=== PATIENT | female | born 1975 | race Caucasian/White ===

== ENCOUNTER 2018-05-29 22:49 | Emergency (ER) | payer SELFPAY ==
[~2018-05-29] VITALS: Ht 162.6 cm; Wt 77.1 kg
--- NOTE | 2018-05-30 00:51 | PHYS DOC ---
Past Medical History Past Medical History: No Pertinent History Past Surgical History: Smoking: Cigarettes Alcohol Use: None Drug Use: None Adult General Chief Complaint Chief Complaint: ABSCESS HPI HPI Patient is a 42 year old female who presents with an abscess to her right cheek. The patient states that it started approximately one year ago was a cut. She states that it is gradually increased in size but the past two months it has started becoming painful and has greatly increased in size. She denies fever , nausea or vomiting. She has not noticed any drainage from the wound. Review of Systems Review of Systems Constitutional: Denies fever or chills [] Eyes: Denies change in visual acuity, redness, or eye pain [] HENT: Denies nasal congestion or sore throat [] Respiratory: Denies cough or shortness of breath [] Cardiovascular: No additional information not addressed in HPI [] GI: Denies abdominal pain, nausea, vomiting, bloody stools or diarrhea [] : Denies dysuria or hematuria [] Musculoskeletal: Denies back pain or joint pain [] Integument: See history of present illness Neurologic: Denies headache, focal weakness or sensory changes [] Endocrine: Denies polyuria or polydipsia [] All other systems were reviewed and found to be within normal limits, except as documented in this note. Current Medications Current Medications Current Medications Medications (Trade) Dose Ordered Sig/Leydi Start Time Stop Time Status Last Admin Dose Admin Cephalexin HCl (Keflex) 500 mg 1X ONCE 05/30/18 02:45 05/30/18 02:46 DC Info (CONTRAST GIVEN -- Rx MONITORING) 1 each PRN DAILY PRN 05/30/18 02:00 06/01/18 01:59 Iohexol (Omnipaque 300 Mg/ml) 70 ml 1X ONCE 05/30/18 02:00 05/30/18 02:01 DC 05/30/18 01:54 70 ML Lidocaine/ Epinephrine (LIDOCAINE 2%-EPI 1:100,000 multi-dose) 20 ml 1X ONCE 05/30/18 02:45 05/30/18 02:46 DC 05/30/18 02:58 20 ML Neomycin/ Polymyxin/ Bacitracin (Triple Antibiotic Ointment) 1 pkt 1X ONCE 05/30/18 03:30 05/30/18 03:31 UNV Sodium Chloride 1,000 ml @ 1,000 mls/hr 1X ONCE 05/30/18 02:00 05/30/18 02:59 DC 05/30/18 01:00 1,000 MLS/HR Allergies Allergies Allergies Coded Allergies Type Severity Reaction Last Updated Verified No Known Drug Allergies 05/30/18 No Physical Exam Physical Exam Constitutional: Well developed, well nourished, no acute distress, non-toxic appearance. [] Cardiovascular:Heart rate regular rhythm, no murmur [] Lungs & Thorax: Bilateral breath sounds clear to auscultation [] Abdomen: Bowel sounds normal, soft, no tenderness, no masses, no pulsatile masses. [] Skin: There is a pumk-hoivol-lapde lesion to the patient's right upper cheek that is fluctuant, no erythema noted, tender to palpation Neurologic: Alert and oriented X 3, normal motor function, normal sensory function, no focal deficits noted. [] Psychologic: Affect normal, judgement normal, mood normal. [] Dr. Pradhan Physician exam Constitutional: Well developed, no acute distress, non-toxic appearance. [] Skin: Fluctuant lesion to right cheek which is tender to palpation, base appears indurated. no surrounding erythema noted Current Patient Data Vital Signs Vital Signs Date Time Temp Pulse Resp B/P (MAP) Pulse Ox O2 Delivery O2 Flow Rate FiO2 05/30/18 02:20 60 18 100/60 (73) Room Air 05/30/18 01:00 98.0 99 98.0 Lab Values Laboratory Tests Test 05/30/18 01:23 05/30/18 01:24 POC Hemoglobin 13.9 g/dL (12-15) POC Hematocrit 41 % (36-40) H POC Sodium 139 mmol/L (135-145) POC Potassium 5.1 mmol/L (3.5-5.0) H POC Chloride 103 mmol/L (98-110) POC Total CO2 29 mmol/L (23-32) Anion Gap 14 mmol/L (6-14) POC Blood Urea Nitrogen 18 mg/dL (8-26) POC Creatinine 0.8 mg/dL (0.5-1.4) Glucose Level 90 mg/dL (70-99) POC Ionized Calcium (Magno) 1.07 mmol/L (1.13-1.32) L Urine Test Negative (NEG) Laboratory Tests 9/23/18 01:23 EKG EKG [] Radiology/Procedures Radiology/Procedures PROCEDURE: CT MAXILLOFACIAL W/CONTRAST PQRS Compliance statement: One or more of the following individualized dose reduction techniques were utilized for this examination: 1. Automated exposure control. 2. Adjustment of the mA and/or kV according to patient size. 3. Use of iterative reconstruction technique. Indication:right cheek abscess; Omni 300, 70ml TECHNIQUE: CT of the maxillofacial bones with IV contrast multiplanar reformats. COMPARISON: None FINDINGS: The orbits and visualized sections through the brain are within normal limits. The nasopharynx and oropharynx are within normal limits. The submandibular glands, parotid glands are within normal limits. No enlarged deep cervical adenopathy. There is a 1.8 x 1.8 x 2.0 cm partially scribed attenuating lesion in the superficial soft tissue of the right face overlying the zygomatic arch. Mild surrounding inflammatory changes are seen. The visualized paranasal sinuses are clear. Mandible and temporomandibular joints are within normal limits. Visualized superior cervical spine within normal limits. IMPRESSION: 1. Superficial right facial soft tissue lesion most likely an infected sebaceous cyst. Electronically signed by: Jose De Jesus Hammer DO (05/30/2018 2:26 AM) [facility] Course & Med Decision Making Course & Med Decision Making Pertinent Labs and Imaging studies reviewed. (See chart for details) []0108: Care was transitioned to Dr. Pradhan to await the CT scan results. Sign out received from Michael for patient with fluctuant indurated lesion to right cheek. History of prior injury/laceration. Patient seen and evaluated by myself. No surrounding erythema. Labs reviewed. CT imaging obtained with findings consistent for infected sebaceous cyst. I&D performed with attempt at removal of intact cyst. Cyst did rupture and contents expelled. Copious irrigation utilized. Empiric antibiotics given. Given location of cyst to face , suture repair performed. Patient aware cyst may reform and she may need to follow with general surgery for full excision. Gen. surgery referral provided. Patient stable for discharge with outpatient follow-up with PCP. Discussed findings and plan with patient, who acknowledges understanding and agreement. Dragon Disclaimer Dragon Disclaimer This electronic medical record was generated, in whole or in part, using a voice recognition dictation system. Departure Departure Impression: Primary Impression: Infected sebaceous cyst Disposition: HOME, SELF-CARE Condition: STABLE Referrals: NO PCP (PCP) JOCELYN THOMPSON MD Patient Instructions: Cyst Removal Additional Instructions: Do not soak your wound. You may shower. Clean wound daily with soap and water. Change dressing 2 times daily. Use over the counter antibiotic ointment with each dressing change. Sutures need to be removed in 5 days. Present to your family doctor or local urgent care for removal. You may also present to the ED but it will be an additional visit/charge. After suture removal you may use Vitamin E ointment to soften the wound and prevent scarring. Scripts Hydrocodone/Apap 5-325 (NORCO 5-325 TABLET) 1 Each Tablet 1 TAB PO PRN Q6HRS PRN for PAIN, #6 TAB 0 Refills Prov: JASON PRADHAN DO 05/30/18 Cephalexin (KEFLEX) 500 Mg Capsule 500 MG PO QID for 7 Days, #28 CAP Prov: JASON PRADHAN DO 05/30/18 Incision and Drainage Incision and Drainage : Site: Right cheek Blade Size: 15 I & D Procedure: sterile drapes applied, sterile dressing applied Progress Verbal consent obtained. Time out performed. ChloraPrep utilized. Sterile glove donned. Sterile drapes applied. Anesthesia obtained with infiltration of 3mls of 2% lidocaine with epi with adequate anesthesia. 15 blade scalpel utilized to follow patient's lines to minimize scarring. Dissection performed with a temperature remove sac of sebaceous cyst intact. Cyst did rupture with malodorous thick yellow contents expelled. Contents fully expelled. Wound explored and any loculations broken down with curved Sheree clamp. Copious irrigation utilized. (500mls of NS). Laceration subsequently repaired with 6-0 nylon x 5 sutures. Topical antibiotic ointment applied with sterile dressing. Patient tolerated procedure well and without complication. Attending Signature Attending Signature I have personally interviewed and examined the patient. All charts, labs, and imaging studies were reviewed. I agree with the PA/BOX CHIPPER's findings, exam, and plan. MICHAEL QUEZADA APRN May 30, 2018 00:51 JASON PRADHAN DO May 30, 2018 03:26
[2018-05-30 01:27] LABS: CREATININE ISTAT 0.8 mg/dL (0.5-1.4); HEMOGLOBIN ISTAT 13.9 g/dL (12-15); ION CA ISTAT 1.07 mmol/L (1.13-1.32); POTASSIUM ISTAT 5.1 mmol/L (3.5-5.0)
[2018-05-30 01:42] LABS: U PREG PATIENT NEGATIVE (NEG)
[2018-05-30] MEDS ORDERED: IOHEXOL 300 MG/ML 100ML VIAL. IV ONE (02:00)
[2018-05-30] MEDS ORDERED: IV NORMAL SALINE 1000ML BAG 1,000 ML IV ONE (02:00)
[2018-05-30] MEDS ORDERED: CONTRAST GIVEN. MC PRN (02:00)
[2018-05-30 02:20] VITALS: BP 100/60
--- NOTE | 2018-05-30 02:29 | RAD ---
PQRS Compliance statement: One or more of the following individualized dose reduction techniques were utilized for this examination: 1. Automated exposure control. 2. Adjustment of the mA and/or kV according to patient size. 3. Use of iterative reconstruction technique. Indication:right cheek abscess; Omni 300, 70ml TECHNIQUE: CT of the maxillofacial bones with IV contrast multiplanar reformats. COMPARISON: None FINDINGS: The orbits and visualized sections through the brain are within normal limits. The nasopharynx and oropharynx are within normal limits. The submandibular glands, parotid glands are within normal limits. No enlarged deep cervical adenopathy. There is a 1.8 x 1.8 x 2.0 cm partially scribed attenuating lesion in the superficial soft tissue of the right face overlying the zygomatic arch. Mild surrounding inflammatory changes are seen. The visualized paranasal sinuses are clear. Mandible and temporomandibular joints are within normal limits. Visualized superior cervical spine within normal limits. IMPRESSION: 1. Superficial right facial soft tissue lesion most likely an infected sebaceous cyst. Electronically signed by: Jose De Jesus Hammer DO (05/30/2018 2:26 AM) [facility]
[2018-05-30] MEDS ORDERED: CEPHALEXIN 250 MG CAPSULE. PO ONE (02:45)
[2018-05-30] MEDS ORDERED: LIDOCAINE 2%/EPI 1:100,000 20 ML VIAL. IJ ONE (02:45)
[2018-05-30] MEDS ORDERED: CEPH-264 PO (03:16)
[2018-05-30] MEDS ORDERED: HYDR-971 PO (03:16)
[2018-05-30] MEDS ORDERED: NEOMY/BACITR/POLYMYXIN OINT PACKET. TP ONE (03:45)
== END 2018-05-30 03:30 | disposition home or self-care (01) ==
LOC: ER 22:49
DX: L72.3 Sebaceous cyst (principal); F17.210 Nicotine dependence, cigarettes, uncomplicated; Z98.890 Other specified postprocedural states
CPT/HCPCS: 10060; 70487; 80047; 81025; 99285; J3490; J7030; Q9967

== ENCOUNTER 2018-06-10 14:51 | Emergency (ER) | payer SELFPAY ==
[~2018-06-10] VITALS: Ht 162.6 cm; Wt 77.1 kg
[~2018-06-10 14:51] MED LIST: CEPH-264 PO; HYDR-971 PO
[2018-06-10] MEDS ORDERED: NEOMY/BACITR/POLYMYXIN OINT PACKET. TP ONE (14:55)
[2018-06-10 15:21] VITALS: BP 122/58
--- NOTE | 2018-06-10 15:32 | PHYS DOC ---
Past Medical History Past Medical History: No Pertinent History Past Surgical History: Alcohol Use: None Drug Use: None Adult General Chief Complaint Chief Complaint: SUTURE/STAPLE REMOVAL HPI HPI Patient is a 42 year old female who presents for suture removal from the right cheek after drainage of a sebaceous cyst in the ED on 05/30/2018. Patient states the cyst reformed. Review of Systems Review of Systems Constitutional: Denies fever or chills [] Musculoskeletal: Denies back pain or joint pain [] Integument: Suture removal from the right cheek Neurologic: Denies headache, focal weakness or sensory changes [] All other systems were reviewed and found to be within normal limits, except as documented in this note. Current Medications Current Medications Current Medications Medications (Trade) Dose Ordered Sig/Leydi Start Time Stop Time Status Last Admin Dose Admin Neomycin/ Polymyxin/ Bacitracin (Triple Antibiotic Ointment) 1 pkt STK-MED ONCE 06/10/18 14:55 06/10/18 14:57 DC Allergies Allergies Allergies Coded Allergies Type Severity Reaction Last Updated Verified No Known Drug Allergies 05/30/18 No Physical Exam Physical Exam Constitutional: Well developed, well nourished, no acute distress, non-toxic appearance. [] Skin: Warm, dry, no erythema, right cheek with an indurated area approximately 3X3cm, the area has no erythema, there is fluctuance to the area, no warmth. There is a well approximated laceration site on the lateral aspect of the lesion. Laceration site has sutures. Back: No tenderness, no CVA tenderness. [] Extremities: No tenderness, no cyanosis, no clubbing, ROM intact, no edema. [] Neurologic: Alert and oriented X 3, normal motor function, normal sensory function, no focal deficits noted. [] Psychologic: Affect normal, judgement normal, mood normal. [] Current Patient Data Vital Signs Vital Signs Date Time Temp Pulse Resp B/P (MAP) Pulse Ox O2 Delivery O2 Flow Rate FiO2 06/10/18 15:21 97.5 66 18 122/58 (79) 99 Room Air 97.5 EKG EKG [] Radiology/Procedures Radiology/Procedures [] Course & Med Decision Making Course & Med Decision Making Pertinent Labs and Imaging studies reviewed. (See chart for details) Patient has sebaceous cyst on her right cheek that was drained on 05/30/2018 and refilled back. She is here for suture removal. Sutures were removed by RN. The laceration site is well approximated. Patient was instructed to follow-up with Gen. surgery, plastic surgeon or metal reed tuner to have this cyst completely excised. Her tetanus is up-to-date. Staff Physician Addendum: I was working in the ER during the course of this patient's visit. I was available for consultation as needed, but I was not directly involved in the care of this patient. Dragon Disclaimer Dragon Disclaimer This electronic medical record was generated, in whole or in part, using a voice recognition dictation system. Departure Departure Impression: Primary Impression: Sebaceous cyst Disposition: HOME, SELF-CARE Condition: STABLE Referrals: NO PCP (PCP) Please contact [facility] and set up an appointment with a plastic surgeon SABRA PAK MD follow up as soon as you can SHARLENE HARRIS MD follow up as soon as you can Patient Instructions: Cyst Removal Additional Instructions: You were evaluated in the emergency room for sebaceous cyst on your cheek your stitches were removed by the cyst refilled. Please contact one of the provided specialists and follow-up as soon as possible for complete removal of the cyst. CAMRON PONCE APRN Jun 10, 2018 15:32 NICHO MENDEZ MD Jun 14, 2018 06:55
== END 2018-06-10 15:52 | disposition home or self-care (01) ==
LOC: ER 14:51
DX: L72.3 Sebaceous cyst (principal); Z98.890 Other specified postprocedural states
CPT/HCPCS: 99281

== ENCOUNTER 2018-09-23 22:35 | Emergency (ER) | payer SELFPAY ==
[~2018-09-23] VITALS: Ht 162.6 cm; Wt 77.1 kg
[~2018-09-23 22:35] MED LIST changes: +HYDR-3164 PO; -HYDR-971 PO
[2018-09-23 22:40] VITALS: BP 122/58
[2018-09-23] MEDS ORDERED: LIDOCAINE WITH 8.4% SOD BICARB 3 ML DISP.SYRIN. INJ ONE (23:00)
--- NOTE | 2018-09-23 23:03 | PHYS DOC ---
Past Medical History Past Medical History: No Pertinent History Past Surgical History: Alcohol Use: None Drug Use: None Adult General Chief Complaint Chief Complaint: FOREIGNBODY EAR HPI HPI Patient is a 42 year old female who presents with a foreign body to the right ear. The patient states that this evening she felt a cockroach in her ear. She presented directly to the emergency department. She states that she did take a sharp object and try to stab the cockroach was unable to remove it. She denies bleeding from the ear canal. Review of Systems Review of Systems Constitutional: Denies fever or chills [] Eyes: Denies change in visual acuity, redness, or eye pain [] HENT: See history of present illness Respiratory: Denies cough or shortness of breath [] Cardiovascular: No additional information not addressed in HPI [] Neurologic: Denies headache, focal weakness or sensory changes [] Endocrine: Denies polyuria or polydipsia [] All other systems were reviewed and found to be within normal limits, except as documented in this note. Current Medications Current Medications Current Medications Medications (Trade) Dose Ordered Sig/Leydi Start Time Stop Time Status Last Admin Dose Admin Lidocaine/Sodium Bicarbonate (Buffered Lidocaine 1%) 3 ml 1X ONCE 09/23/18 23:00 09/23/18 23:01 DC 09/23/18 22:40 3 ML Allergies Allergies Allergies Coded Allergies Type Severity Reaction Last Updated Verified No Known Drug Allergies 05/30/18 No Physical Exam Physical Exam Constitutional: Well developed, well nourished, no acute distress, non-toxic appearance. [] HENT: Normocephalic, atraumatic, right ear canal has a large cockroach embedded in the canal Eyes: PERRLA, EOMI, conjunctiva normal, no discharge. [] Neck: Normal range of motion, no tenderness, supple, no stridor. [] Cardiovascular:Heart rate regular rhythm, no murmur [] Lungs & Thorax: Bilateral breath sounds clear to auscultation [] Neurologic: Alert and oriented X 3, normal motor function, normal sensory function, no focal deficits noted. [] Psychologic: Affect normal, judgement normal, mood normal. [] Current Patient Data Vital Signs Vital Signs Date Time Temp Pulse Resp B/P (MAP) Pulse Ox O2 Delivery O2 Flow Rate FiO2 09/23/18 22:40 98.6 103 18 122/58 (79) 95 Room Air 98.6 EKG EKG [] Radiology/Procedures Radiology/Procedures []The ear canal was anesthetized with lidocaine. We attempted to remove the cockroach with alligator forceps but were unsuccessful. The cockroach is deep and appears to be resting against the tympanic membrane. Dr. Torres assisted with trying to remove the foreign body and was unsuccessful as well. We explained to the patient that she needs to be seen by an supervisor wool shearing for specialized equipment to remove this insect. The patient was very erratic during her visit. She left the emergency department, but her friend did come to the desk to get the information for her for a period Course & Med Decision Making Course & Med Decision Making Pertinent Labs and Imaging studies reviewed. (See chart for details) [] Dragon Disclaimer Dragon Disclaimer This electronic medical record was generated, in whole or in part, using a voice recognition dictation system. Departure Departure Impression: Primary Impression: Foreign body in ear Disposition: 01 HOME, SELF-CARE Condition: STABLE Referrals: NO PCP (PCP) IAM CARLSON MD Patient Instructions: Ear Foreign Body Additional Instructions: Call Dr. Carlson's office tomorrow morning for an appointment to remove this cockroach from your ear canal. MICHAEL QUEZADA APRN Sep 23, 2018 23:03
== END 2018-09-23 23:04 | disposition home or self-care (01) ==
LOC: ER 22:35
DX: T16.1XXA Foreign body in right ear, initial encounter (principal); Z98.890 Other specified postprocedural states; X58.XXXA Exposure to other specified factors, initial encounter; Y93.89 Activity, other specified; Y92.89 Other specified places as the place of occurrence of the external cause; Y99.8 Other external cause status
CPT/HCPCS: 69200; 99284